=== PATIENT | male | born 1940 | race Caucasian/White ===

== ENCOUNTER 2019-05-01 06:35 | Day surgery (SDC) | payer MEDICARE, OTHER ==
[~2019-05-01] VITALS: Ht 170.2 cm; Wt 74.8 kg
[2019-05-01] MEDS ORDERED: TROPICAMIDE 1% OPHTH DROPS 15ML LEFTEYE NR (06:45)
[2019-05-01] MEDS ORDERED: CYCLOPENTOLATE HCL 1% OPHTH DROPS 2ML LEFTEYE NR (06:45)
[2019-05-01] MEDS ORDERED: PHENYLEPHRINE HCL 10% OPHTH DROPS 5ML LEFTEYE NR (06:45)
[2019-05-01] MEDS ORDERED: HYALURONATE SODIUM 14 MG/ML 0.85ML SYRINGE IO ONE (07:18)
[2019-05-01] MEDS ORDERED: LACTATED RINGERS 1,000 ML IV SCH (07:30)
[2019-05-01] MEDS ORDERED: MIDAZOLAM HCL 2 MG/2 ML VIAL ONE (07:57)
[2019-05-01] MEDS ORDERED: TROPICAMIDE 1% OPHTH DROPS 15ML RIGHTEYE NR (08:00)
[2019-05-01] MEDS ORDERED: PHENYLEPHRINE HCL 10% OPHTH DROPS 5ML RIGHTEYE NR (08:00)
[2019-05-01] MEDS ORDERED: CYCLOPENTOLATE HCL 1% OPHTH DROPS 2ML RIGHTEYE NR (08:00)
[2019-05-01] MEDS ORDERED: PREDNISOLONE ACETATE 1% OPHTH DROPS 1ML ONE (08:19)
[2019-05-01] MEDS ORDERED: CIPROFLOXACIN 0.3% OPHTH SOLN 2.5ML ONE (08:19)
[2019-05-01] MEDS ORDERED: TETRACAINE 0.5% OPHTH DROPS 4ML ONE (08:19)
[2019-05-01] MEDS ORDERED: LIDOCAINE HCL/PF 2% 20 MG/ML 10ML VIAL ONE (08:19)
[2019-05-01] MEDS ORDERED: BALANCED SALT IRRIG SOLN 15ML ONE (08:19)
[2019-05-01] MEDS ORDERED: NEO/POLYMYX B SULF/DEXAMETH OPHTH OINT 3.5GM ONE (08:19)
[2019-05-01] MEDS ORDERED: BALANCED SALT IRRIG SOLN COMB1 500ML OP ONE (08:30)
[2019-05-01] MEDS ORDERED: GEMF600T5 PO (09:53)
[2019-05-01] MEDS ORDERED: METO-396 PO (09:53)
[2019-05-01] MEDS ORDERED: ASPI-1393 PO (09:53)
[2019-05-01] MEDS ORDERED: ZET10 PO (09:53)
[2019-05-01] MEDS ORDERED: AMLO1TAB33 PO (09:53)
== END 2019-05-01 10:00 | disposition home or self-care (01) ==
LOC: EDSEX 06:35 → OR 06:35
PROVIDERS: ATTEND Ophthalmology
DX: H25.89 Other age-related cataract (principal); I10 Essential (primary) hypertension; E78.00 Pure hypercholesterolemia, unspecified; M16.9 Osteoarthritis of hip, unspecified; Z79.899 Other long term (current) drug therapy; Z88.5 Allergy status to narcotic agent; Z88.0 Allergy status to penicillin; Z86.73 Personal history of transient ischemic attack (TIA), and cerebral infarction without residual deficits; Z79.82 Long term (current) use of aspirin
CPT/HCPCS: 66984; J2250; J3490; V2632

== ENCOUNTER 2019-08-14 05:52 | Day surgery (SDC) | payer MEDICARE, OTHER ==
[~2019-08-14] VITALS: Ht 170.2 cm; Wt 74.8 kg
[~2019-08-14 05:52] MED LIST: AMLO1TAB33 PO; ASPI-1393 PO; CYCLOPENTOLATE HCL 1% OPHTH DROPS 2ML LEFTEYE ONE; EZET10TA13 PO; GEMF600T5 PO; LACTATED RINGERS 1,000 ML IV SCH; METO-396 PO; NEOMYCIN/POLYMYXN B/GRAMICIDIN OPHTH DROPS 10ML LEFTEYE SCH; TROPICAMIDE 1% OPHTH DROPS 15ML LEFTEYE ONE
[2019-08-14] MEDS ORDERED: NEO/POLYMYX B SULF/DEXAMETH OPHTH OINT 3.5GM ONE (06:00)
[2019-08-14] MEDS ORDERED: LIDOCAINE HCL/PF 2% 20 MG/ML 10ML VIAL ONE (06:00)
[2019-08-14] MEDS ORDERED: PREDNISOLONE ACETATE 1% OPHTH DROPS 5ML ONE (06:00)
[2019-08-14] MEDS ORDERED: TETRACAINE 0.5% OPHTH DROPS 4ML ONE (06:00)
[2019-08-14] MEDS ORDERED: PHENYLEPHRINE HCL 10% OPHTH DROPS 5ML ONE (06:00)
[2019-08-14] MEDS ORDERED: CIPROFLOXACIN 0.3% OPHTH SOLN 2.5ML ONE (06:00)
[2019-08-14] MEDS ORDERED: BALANCED SALT IRRIG SOLN 15ML ONE (06:00)
[2019-08-14] MEDS ORDERED: BALANCED SALT IRRIG SOLN COMB1 500ML OP ONE (06:45)
[2019-08-14] MEDS ORDERED: HYALURONATE SODIUM 14 MG/ML 0.85ML SYRINGE IO ONE (06:58)
[2019-08-14] MEDS ORDERED: MIDAZOLAM HCL 2 MG/2 ML VIAL ONE (07:38)
[2019-08-14] MEDS ORDERED: FENTANYL CITRATE/PF 50MCG/ML 2ML VIAL ONE (07:38)
[2019-08-14] MEDS ORDERED: DIPHENHYDRAMINE 50MG/ML VIAL ONE (07:38)
[2019-08-14] MEDS ORDERED: SODIUM CHLORIDE 0.9% 10ML VIAL ONE (07:57)
[2019-08-14] MEDS ORDERED: HYDRALAZINE 20MG/ML VIAL ONE (07:57)
[2019-08-14] MEDS ORDERED: GLYCOPYRROLATE 0.2 MG/ML 2ML VIAL ONE (08:07)
[2019-08-14] MEDS ORDERED: IBUPROFEN 600MG TABLET PO ONE (10:15)
== END 2019-08-14 10:43 | disposition home or self-care (01) ==
LOC: OR 05:52
PROVIDERS: ATTEND Ophthalmology
DX: H25.89 Other age-related cataract (principal); I10 Essential (primary) hypertension; E78.00 Pure hypercholesterolemia, unspecified; K21.9 Gastro-esophageal reflux disease without esophagitis; M16.0 Bilateral primary osteoarthritis of hip; N40.0 Benign prostatic hyperplasia without lower urinary tract symptoms; F41.9 Anxiety disorder, unspecified; Z88.0 Allergy status to penicillin; Z88.5 Allergy status to narcotic agent; Z79.82 Long term (current) use of aspirin; Z79.899 Other long term (current) drug therapy
CPT/HCPCS: 66984; J0360; J1200; J2250; J3010; J3490; V2632

== ENCOUNTER 2024-10-18 14:50 | Inpatient (IN) | payer MEDICARE, OTHER ==
[~2024-10-18] VITALS: Ht 170.2 cm; Wt 74.4 kg
[~2024-10-18 14:50] MED LIST changes: -ASPI-1393 PO; +ASPI-1497 PO; -CYCLOPENTOLATE HCL 1% OPHTH DROPS 2ML LEFTEYE ONE; -EZET10TA13 PO; +EZET10TA81 PO; -GEMF600T5 PO; +GEMF600T90 PO; -LACTATED RINGERS 1,000 ML IV SCH; -NEOMYCIN/POLYMYXN B/GRAMICIDIN OPHTH DROPS 10ML LEFTEYE SCH; -TROPICAMIDE 1% OPHTH DROPS 15ML LEFTEYE ONE
[2024-10-18 16:08] LABS: BASOPHILS % 0.1 % (0.0-2.0); CHLORIDE 105 mEq/L (98-107); EOSINOPHILS % 2.9 % (0.0-5.0); HEMATOCRIT. 38.9 % (42.0-52.0); HEMOGLOBIN. 13.3 g/dL (14.0-18.0); LYMPHOCYTES % 22.5 % (20.0-50.0); MEAN CORPUSCULAR HEMOGLOBIN 29.6 pg (28.0-32.0); MEAN CORPUSCULAR HGB CONC 34.1 g/dL (31.0-37.0); MEAN CORPUSCULAR VOLUME 86.6 fL (80.0-94.0); MEAN PLATELET VOLUME 7.3 fl (7.4-10.4); MONOCYTES % 6.8 % (2.0-8.0); NEUTROPHILS % 67.7 % (40.0-76.0); PLATELET 214 x1000/uL (130-400); POTASSIUM 3.9 mEq/L (3.5-5.1); RED BLOOD CELL COUNT 4.49 mill/uL (4.7-6.1); RED CELL DISTRIBUTION WIDTH 14.5 % (11.6-14.6); SODIUM 139 mEq/L (136-145); WHITE BLOOD COUNT 6.4 x1000/uL (4.5-11.0)
[2024-10-18 16:09] LABS: CALCIUM 9.6 mg/dL (8.7-10.4); CARBON DIOXIDE 25 mEq/L (21-32)
[2024-10-18 16:14] LABS: CREATININE 1.2 mg/dL (0.6-1.3); GLUCOSE 149 mg/dL (70-105); UREA NITROGEN BLOOD 24 mg/dL (9-23)
[2024-10-18 16:15] LABS: TROPONIN I HIGH SENSITIVITY 10 ng/L (3.0-53)
[2024-10-18 16:16] LABS: D-DIMER 0.45 mg/L FEU (<0.50); INR 0.8; PARTIAL THROMBOPLASTIN TIME 27.2 sec (23.4-31.0); PROTHROMBIN TIME 9.5 sec (9.6-11.0)
[2024-10-18] MEDS ORDERED: MAGNESIUM/ALUMINUM HYDROXIDE/SIMETHICONE 30ML UDC PO PRN (18:00)
[2024-10-18] MEDS ORDERED: DOCUSATE SODIUM 100MG CAPSULE PO PRN (18:00)
[2024-10-18] MEDS ORDERED: ACETAMINOPHEN 325MG TABLET PO PRN (18:00)
[2024-10-18] MEDS ORDERED: ONDANSETRON HCL 4MG/2ML INJ IV PRN (18:00)
[2024-10-18] MEDS ORDERED: CLONIDINE 0.1MG TABLET PO PRN (18:00)
[2024-10-18] MEDS ORDERED: GUAIFENESIN 200MG/10ML SUGAR FREE UDC PO PRN (18:00)
[2024-10-18 18:43] LABS: TROPONIN I HIGH SENSITIVITY 17 ng/L (3.0-53)
[2024-10-18 18:46] LABS: THYROID STIMULATING HORMONE 1.75 uIU/mL (0.55-4.78)
[2024-10-18 18:47] LABS: T4 FREE 1.24 ng/dL (0.89-1.76)
[2024-10-18] MEDS ORDERED: ASCO500T20 PO (19:00)
[2024-10-18] MEDS ORDERED: ASPI-1406 PO (19:00)
[2024-10-18] MEDS ORDERED: FERR-63 PO (19:00)
[2024-10-18] MEDS ORDERED: LOSA50TA41 PO (19:00)
[2024-10-18] MEDS ORDERED: ERGO1250 PO (19:00)
[2024-10-18] MEDS ORDERED: AMLO5TAB88 PO (19:00)
[2024-10-18] MEDS ORDERED: DEXTROSE 50% WATER 50ML SYRINGE IV PRN (19:15)
[2024-10-18 20:29] LABS: FOLIC ACID (FOLATE) SERUM > 20.00 ng/mL (>5.38)
[2024-10-18 20:30] LABS: VITAMIN B12 SERUM 611 pg/mL (211-911)
[2024-10-18] MEDS: BLOOD SUGAR DIAGNOSTIC STRIP TEST SCH (21:00)
[2024-10-18] MEDS: INSULIN LISPRO 100 UNITS/ML SUBCUT SCH (21:00)
[2024-10-18 22:15] VITALS: BP_SYST 195; BP_DIAS 80; BP_DIAS 83; PULSE 67; PULSE 76; RESP 12; TEMP 36.16956; TEMP 36.5292; O2SAT 98
[2024-10-18] MEDS: ATORVASTATIN CALCIUM 40MG TABLET PO SCH (22:24)
[2024-10-18] MEDS: AMLODIPINE 5MG TABLET PO SCH (22:24)
[2024-10-18] MEDS: FAMOTIDINE 20MG TABLET PO SCH (22:24)
[2024-10-18 23:05] VITALS: BP 176/70; PULSE 64; RESP 20; O2SAT 97
[2024-10-18 23:48] LABS: CLARITY URINE CLEAR (CLEAR); COLOR URINE YELLOW (YELLOW); GLUCOSE URINE NEGATIVE (NEGATIVE); KETONES URINE NEGATIVE (NEGATIVE); LEUKOCYTE ESTERASE URINE NEGATIVE (NEGATIVE); NITRITE URINE NEGATIVE (NEGATIVE); OCCULT BLOOD URINE NEGATIVE (NEGATIVE); PH URINE 6.5 (4.5-8.0); PROTEIN URINE NEGATIVE (NEGATIVE); SPECIFIC GRAVITY URINE 1.011 (1.005-1.030); UROBILINOGEN URINE 0.2 E.U./dL (0.2-1.0)
[2024-10-18 23:55] LABS: *AMPHETAMINES SCREEN URINE NEGATIVE (NEGATIVE); *BARBITURATES SCREEN URINE NEGATIVE (NEGATIVE); *BENZODIAZEPINES SCREEN URINE NEGATIVE (NEGATIVE); *COCAINE SCREEN URINE NEGATIVE (NEGATIVE); CANNABINOID URINE SCREEN NEGATIVE (NEGATIVE); ECSTASY MDMA SCREEN URINE NEGATIVE (NEGATIVE); METHADONE URINE SCREEN NEGATIVE (NEGATIVE); OPIATES URINE SCREEN NEGATIVE (NEGATIVE); PHENCYCLIDINE URINE SCREEN NEGATIVE (NEGATIVE)
[2024-10-19] VITALS: BP 150/69; PULSE 60; RESP 16; TEMP 36.22512; O2SAT 97
[2024-10-19 04:00] VITALS: BP 154/67; PULSE 62; RESP 11; TEMP 36.6696; O2SAT 95
[2024-10-19 07:41] LABS: BASOPHILS % 0.2 % (0.0-2.0); EOSINOPHILS % 3.8 % (0.0-5.0); HEMATOCRIT. 36.4 % (42.0-52.0); HEMOGLOBIN. 12.3 g/dL (14.0-18.0); LYMPHOCYTES % 28.5 % (20.0-50.0); MEAN CORPUSCULAR HEMOGLOBIN 29.4 pg (28.0-32.0); MEAN CORPUSCULAR HGB CONC 33.8 g/dL (31.0-37.0); MEAN CORPUSCULAR VOLUME 86.8 fL (80.0-94.0); MEAN PLATELET VOLUME 7.2 fl (7.4-10.4); MONOCYTES % 8.6 % (2.0-8.0); NEUTROPHILS % 58.9 % (40.0-76.0); PLATELET 217 x1000/uL (130-400); RED BLOOD CELL COUNT 4.19 mill/uL (4.7-6.1); RED CELL DISTRIBUTION WIDTH 14.2 % (11.6-14.6); WHITE BLOOD COUNT 7.2 x1000/uL (4.5-11.0)
[2024-10-19 07:59] LABS: CHLORIDE 108 mEq/L (98-107); POTASSIUM 3.9 mEq/L (3.5-5.1); SODIUM 140 mEq/L (136-145)
[2024-10-19 08:00] VITALS: BP 164/67; PULSE 59; RESP 12; TEMP 36.78072; O2SAT 95
[2024-10-19 08:00] LABS: CALCIUM 9.2 mg/dL (8.7-10.4); CARBON DIOXIDE 24 mEq/L (21-32)
[2024-10-19 08:05] LABS: GLUCOSE 91 mg/dL (70-105); UREA NITROGEN BLOOD 18 mg/dL (9-23)
[2024-10-19] MEDS: ASPIRIN 81MG TABLET PO SCH (08:56)
[2024-10-19] MEDS: ENOXAPARIN 40MG/0.4ML SYR SUBCUT SCH (08:57)
[2024-10-19 12:00] VITALS: BP 154/73; PULSE 67; RESP 19; TEMP 36.6696; O2SAT 99
[2024-10-19 16:00] VITALS: BP 150/66; PULSE 63; RESP 12; TEMP 36.78072; O2SAT 95
[2024-10-19] MEDS: CYANOCOBALAMIN 1000MCG/ML VIAL IM SCH (17:07)
[2024-10-19] MEDS: SUCRALFATE 1G TABLET PO SCH (17:07)
[2024-10-19 20:00] VITALS: BP 131/69; PULSE 62; RESP 15; TEMP 36.72516; O2SAT 97
[2024-10-19] MEDS: PANTOPRAZOLE SODIUM 40 MG/VIAL IV SCH (22:06)
[2024-10-20] VITALS: BP 149/70; PULSE 64; RESP 12; TEMP 36.78072; O2SAT 94
[2024-10-20 04:00] VITALS: PULSE 62; RESP 14; TEMP 36.44736; O2SAT 94
[2024-10-20 05:22] VITALS: BP 121/57; PULSE 61; RESP 12; O2SAT 95
[2024-10-20 08:00] VITALS: BP 155/71; PULSE 62; RESP 13; TEMP 36.78072; O2SAT 95
[2024-10-20] MEDS: AMLODIPINE 5MG TABLET PO SCH (09:05)
[2024-10-20 09:24] LABS: CALCIUM 9.2 mg/dL (8.7-10.4); POTASSIUM 4.2 mEq/L (3.5-5.1)
[2024-10-20 09:29] LABS: CREATININE 1.2 mg/dL (0.6-1.3)
[2024-10-20 09:39] LABS: HEMATOCRIT 39.8 % (42.0-52.0); HEMOGLOBIN 13.6 g/dL (14.0-18.0); MEAN CORPUSCULAR HEMOGLOBIN 29.7 pg (28.0-32.0); MEAN CORPUSCULAR HGB CONC 34.2 g/dL (31.0-37.0); PLATELET 255 x1000/uL (130-400); RED BLOOD CELL COUNT 4.57 mill/uL (4.7-6.1); RED CELL DISTRIBUTION WIDTH 14.3 % (11.6-14.6); WHITE BLOOD COUNT 6.9 x1000/uL (4.5-11.0)
[2024-10-20 12:00] VITALS: BP 151/70
[2024-10-20] MEDS ORDERED: AMLO5TAB88 PO (12:15)
[2024-10-20] MEDS ORDERED: LIP40 PO (12:15)
[2024-10-20 12:25] VITALS: BP 154/73; PULSE 63; TEMP 98; O2SAT 98
== END 2024-10-20 14:49 | disposition home or self-care (01) | DRG 312 ==
LOC: ER 14:50 → 3WST 17:18 → EDBEDREQ 17:20 → EDBEDREQTM 17:20
PROVIDERS: ADMIT Hospitalist; ATTEND Hospitalist
DX: I95.1 Orthostatic hypotension (principal); E78.5 Hyperlipidemia, unspecified; E11.9 Type 2 diabetes mellitus without complications; I10 Essential (primary) hypertension; T50.995A Adverse effect of other drugs, medicaments and biological substances, initial encounter; D63.8 Anemia in other chronic diseases classified elsewhere; Z79.82 Long term (current) use of aspirin; Z86.73 Personal history of transient ischemic attack (TIA), and cerebral infarction without residual deficits; Z79.899 Other long term (current) drug therapy; Z88.0 Allergy status to penicillin; Z88.5 Allergy status to narcotic agent; Y92.89 Other specified places as the place of occurrence of the external cause
CPT/HCPCS: 36415; 71045; 80048; 80061; 80305; 81003; 82607; 82746; 82962; 83036; 83880; 84439; 84443; 84484; 85025; 85027; 85379; 93005; 93306; 93970; 99291; A4606; J1650; J2470; J3420